=== PATIENT | male | born 1990 | race Caucasian/White ===

== ENCOUNTER 2024-03-10 10:28 | Emergency (ER) | payer OTHER ==
[~2024-03-10] VITALS: Ht 170.2 cm; Wt 62.0 kg
[2024-03-10 10:29] VITALS: O2SAT 98
[2024-03-10] MEDS ORDERED: KETOROLAC 30MG/ML VIAL IM STA (10:52)
[2024-03-10] MEDS ORDERED: MAGNESIUM/ALUMINUM HYDROXIDE/SIMETHICONE 30ML UDC PO STA (10:52)
[2024-03-10] MEDS ORDERED: ONDANSETRON 4MG ODT PO STA (10:52)
[2024-03-10 13:44] LABS: HEMATOCRIT. 48.1 % (42.0-52.0); HEMOGLOBIN. 16.9 g/dL (14.0-18.0); MEAN CORPUSCULAR HEMOGLOBIN 30.6 pg (28.0-32.0); MEAN CORPUSCULAR HGB CONC 35.1 g/dL (31.0-37.0); MEAN CORPUSCULAR VOLUME 87.2 fL (80.0-94.0); MEAN PLATELET VOLUME 9.3 fl (7.4-10.4); PLATELET 160 x1000/uL (130-400); RED BLOOD CELL COUNT 5.51 mill/uL (4.7-6.1); RED CELL DISTRIBUTION WIDTH 13.1 % (11.6-14.6); WHITE BLOOD COUNT 12.9 x1000/uL (4.5-11.0)
[2024-03-10 13:53] LABS: CHLORIDE 104 mEq/L (98-107); POTASSIUM 3.9 mEq/L (3.5-5.1); SODIUM 140 mEq/L (136-145)
[2024-03-10 13:54] LABS: CARBON DIOXIDE 28 mEq/L (21-32); PROTHROMBIN TIME 11.4 sec (9.6-11.0)
[2024-03-10 13:55] LABS: CALCIUM 9.3 mg/dL (8.7-10.4)
[2024-03-10 14:00] LABS: GLUCOSE 108 mg/dL (70-105); UREA NITROGEN BLOOD 16 mg/dL (9-23)
[2024-03-10 14:01] LABS: ALANINE AMINOTRANSFERASE 44 IU/L (10-49); ASPARTATE AMINOTRANSFERASE 27 IU/L (<34)
[2024-03-10 14:02] LABS: ALBUMIN 4.5 g/dL (3.2-4.8); BILIRUBIN DIRECT 0.7 mg/dL (<=3.0); BILIRUBIN TOTAL 2.7 mg/dL (0.1-1.0); PROTEIN TOTAL 7.2 g/dL (6.0-8.3)
[2024-03-10] MEDS: KETOROLAC 30MG/ML VIAL IM NR (14:03)
[2024-03-10] MEDS: MAGNESIUM/ALUMINUM HYDROXIDE/SIMETHICONE 30ML UDC PO NR (14:04)
[2024-03-10] MEDS: ONDANSETRON 4MG ODT PO NR (14:04)
[2024-03-10 14:11] LABS: DIFFERENTIAL COMMENT 1
[2024-03-10] MEDS ORDERED: ONDA-239 PO (15:10)
[2024-03-10 15:23] VITALS: BP 114/67; PULSE 82; RESP 18; TEMP 37.00296; O2SAT 98
[2024-03-10 17:19] LABS: PLATELET ESTIMATE NORMAL
== END 2024-03-10 16:04 | disposition home or self-care (01) ==
LOC: ER 10:28
DX: K52.9 Noninfective gastroenteritis and colitis, unspecified (principal); E80.6 Other disorders of bilirubin metabolism
CPT/HCPCS: 99284; 76705; 80076; 80048; 83690; 85025; 85610; 36415; Q0162; J1885